=== PATIENT | female | born 1965 | race Caucasian/White ===

== ENCOUNTER 2018-04-09 14:16 | Emergency (ER) | payer BC ==
[2018-04-09] MEDS ORDERED: Ondansetron 4 MG/2 ML SDV IVPUSH ONE (15:39)
[2018-04-09] MEDS: Sodium Chloride 0.9% 10 ML Syringe FLUSH PRN ×2 (15:50→17:20)
--- NOTE | 2018-04-09 15:52 | EDM.PDOC ---
ED HPI GENERAL MEDICAL PROBLEM - General Chief Complaint: Abdominal Pain Stated Complaint: VOMITING Time Seen by Provider: 04/09/18 14:41 Source of Information: Reports: Patient History Limitations: Reports: No Limitations - History of Present Illness INITIAL COMMENTS - FREE TEXT/NARRATIVE: 52 year old female presents for evaluation and treatment of a headache. Patient reports she has had a headache daily since , about 3 months ago. She reports sinus pressure. State the headaches have been intermittent. This headache started last night. Located mostly in the frontal area but her entire head is involved. Reports associated symptoms of nausea and dry heaves but no vomiting. She does not believe she has had any fevers. No recent trauma. Patient reports she is menopauseal and feels diaphoretic. She is unsure if she has had fevers but is feeling hot and cold. Patient;s blood pressure is elevated upon triage. States she does not normally have elevated b/p. She denies any chest pain or shortness of breath. Reports she drinks alcohol socially. No drug usage. Smokes a 1/2 pack per day. Headache Pain Score (Numeric/FACES): 10 Upper Abdominal Pain Score (Numeric/FACES): 10 - Related Data Allergies Allergy/AdvReac Type Severity Reaction Status Date / Time No Known Allergies Allergy Verified 04/09/18 14:25 Home Meds: Home Meds [place]-3 Fatty Acids [Fish Oil] 500 mg PO DAILY 05/01/16 [History] Amoxicillin/Potassium Clav [Augmentin 875-125 Tablet] 1 each PO BID #20 tablet 04/09/18 [Rx] Cetirizine [ZyrTEC] 10 mg PO DAILY 04/09/18 [History] guaiFENesin [Mucinex] 600 mg PO DAILY 04/09/18 [History] Past Medical History HEENT History: Reports: Impaired Vision, Sinusitis Other HEENT History: uses reading glasses Gastrointestinal History: Reports: GERD, [employer] History: Reports: Musculoskeletal History: Reports: Fracture Neurological History: Reports: Headaches, Chronic Psychiatric History: Reports: Depression - Infectious Disease History Infectious Disease History: Reports: Chicken Pox, Measles, Mumps - Past Surgical History Female Surgical History: Reports: Section, Hysterectomy Social & Family History - Tobacco Use Smoking Status *Q: Current Every Day Smoker Years of Tobacco use: 14 Packs/Tins Daily: 0.5 Second Hand Smoke Exposure: Yes - Caffeine Use Caffeine Use: Reports: Coffee - Recreational Drug Use Recreational Drug Use: No ED ROS GENERAL - Review of Systems Review Of Systems: See Below Constitutional: Reports: Fever, Chills, Malaise, Diaphoresis HEENT: Reports: Sinus Problem. Denies: Ear Pain, Throat Pain Respiratory: Reports: Cough. Denies: Shortness of Breath Cardiovascular: Reports: Chest Pain GI/Abdominal: Reports: Nausea. Denies: Vomiting (reports dry heaves ) - Physical Exam Exam: See Below Exam Limited By: No Limitations General Appearance: Alert, WD/WN, Anxious, Mild Distress, Obese Eye Exam: Bilateral Eye: Normal Inspection (pupils equal and pinpoint 2-3 mm; reactive to light) Ears: Normal External Exam Nose: Normal Inspection Throat/Mouth: Normal Inspection, Normal Lips, Normal Oropharynx, No Airway Compromise, Other (horse voice) Head Exam: Atraumatic, Normocephalic, Sinus Tenderness (bilateral frontal and maxillary) Respiratory/Chest: No Respiratory Distress, Lungs Clear, Normal Breath Sounds Cardiovascular: Normal Peripheral Pulses, Regular Rate, Rhythm, No Murmur GI/Abdominal: Soft, Non-Tender Neuro Exam (Abbreviated): Alert, Oriented, Inattentive Psychiatric: Anxious Skin Exam: Warm, Dry EKG INTERPRETATION EKG Date: 04/09/18 Time: 16:55 Rhythm: NSR Rate (Beats/Min): 66 [place]: Normal P-Wave: Present QRS: Normal ST-T: Normal QT: Normal EKG Interpretation Comments: NSR at 66 bpm. nonspecific wave flattening V2-V4. No STEMI. Reviewed by myself and Dr. Eden Soares. Course - Vital Signs Last Recorded V/S: Last Vital Signs Temp 96.2 F 04/09/18 14:25 Pulse 84 04/09/18 17:50 Resp 18 04/09/18 17:50 BP 142/114 H 04/09/18 17:50 Pulse Ox 99 04/09/18 17:50 - Orders/Labs/Meds Labs: Laboratory Tests 04/09/18 04/09/18 04/09/18 Range/Units 15:52 15:52 16:00 WBC 7.61 (3.98-10.04) K/mm3 RBC 5.83 H (3.98-5.22) M/mm3 Hgb 18.2 H (11.2-15.7) gm/L Hct 51.9 H (34.1-44.9) % MCV 89.0 (79.4-94.8) fl MCH 31.2 (25.6-32.2) pg MCHC 35.1 (32.2-35.5) g/dl RDW Std Deviation 46.1 (36.4-46.3) fL Plt Count 138 L (182-369) K/mm3 MPV 11.2 (9.4-12.3) fl Neutrophils % (Manual) 81 H (40-60) % Band Neutrophils % 0 (0-10) % Lymphocytes % (Manual) 16 L (20-40) % Atypical Lymphs % 0 % Monocytes % (Manual) 1 L (2-10) % Eosinophils % (Manual) 2 (0.7-5.8) % Basophils % (Manual) 0 L (0.1-1.2) Platelet Estimate Adequate RBC Morph Comment Normal Sodium 146 H (136-145) mEq/L Potassium 4.0 (3.5-5.1) mEq/L Chloride 110 H (98-107) mEq/L Carbon Dioxide 24 (21-32) mEq/L Anion Gap 16.0 H (5-15) BUN 10 (7-18) mg/dL Creatinine 0.9 (0.55-1.02) mg/dL Est Cr Clr Drug Dosing 59.80 mL/min Estimated GFR (MDRD) > 60 (>60) mL/min BUN/Creatinine Ratio 11.1 L (14-18) Glucose 115 H (74-106) mg/dL Calcium 9.7 (8.5-10.1) mg/dL Total Bilirubin 0.8 (0.2-1.0) mg/dL AST 20 (15-37) U/L ALT 29 (14-59) U/L Alkaline Phosphatase 68 (46-116) U/L C-Reactive Protein 1.3 H* (<1.0) mg/dL Total Protein 7.2 (6.4-8.2) g/dl Albumin 3.8 (3.4-5.0) g/dl Globulin 3.4 gm/dL Albumin/Globulin Ratio 1.1 (1-2) Urine Color Dark yellow (Yellow) Urine Appearance Clear (Clear) Urine pH 8.5 H (5.0-8.0) Ur Specific [place] 1.025 (1.005-1.030) Urine Protein 2+ H (Negative) Urine Glucose (UA) Negative (Negative) Urine Ketones Trace H (Negative) Urine Occult Blood Negative (Negative) Urine Nitrite Negative (Negative) Urine Bilirubin 1+ H (Negative) Urine Urobilinogen 0.2 (0.2-1.0) Ur Leukocyte Esterase Negative (Negative) Urine RBC 0-5 (0-5) /hpf Urine WBC 0-5 (0-5) /hpf Ur Epithelial Cells 5-10 H (0-5) /hpf Urine Bacteria Moderate H (FEW) /hpf Urine Mucus Many H (FEW) /hpf Urine Opiates Screen (NEGATIVE) Ur Buprenorphine Scrn (NEGATIVE) Ur Oxycodone Screen (NEGATIVE) Urine Methadone Screen (NEGATIVE) Ur Propoxyphene Screen (NEGATIVE) Ur Barbiturates Screen (NEGATIVE) Ur Tricyclics Screen (NEGATIVE) Ur Phencyclidine Scrn (NEGATIVE) Ur Amphetamine Screen (NEGATIVE) U Methamphetamines Scrn (NEGATIVE) U Benzodiazepines Scrn (NEGATIVE) U Cocaine Metab Screen (NEGATIVE) U Marijuana (THC) Screen (NEGATIVE) Ethyl Alcohol 0.00 (0.00) gm% 04/09/18 Range/Units 16:00 WBC (3.98-10.04) K/mm3 RBC (3.98-5.22) M/mm3 Hgb (11.2-15.7) gm/L Hct (34.1-44.9) % MCV (79.4-94.8) fl MCH (25.6-32.2) pg MCHC (32.2-35.5) g/dl RDW Std Deviation (36.4-46.3) fL Plt Count (182-369) K/mm3 MPV (9.4-12.3) fl Neutrophils % (Manual) (40-60) % Band Neutrophils % (0-10) % Lymphocytes % (Manual) (20-40) % Atypical Lymphs % % Monocytes % (Manual) (2-10) % Eosinophils % (Manual) (0.7-5.8) % Basophils % (Manual) (0.1-1.2) Platelet Estimate RBC Morph Comment Sodium (136-145) mEq/L Potassium (3.5-5.1) mEq/L Chloride (98-107) mEq/L Carbon Dioxide (21-32) mEq/L Anion Gap (5-15) BUN (7-18) mg/dL Creatinine (0.55-1.02) mg/dL Est Cr Clr Drug Dosing mL/min Estimated GFR (MDRD) (>60) mL/min BUN/Creatinine Ratio (14-18) Glucose (74-106) mg/dL Calcium (8.5-10.1) mg/dL Total Bilirubin (0.2-1.0) mg/dL AST (15-37) U/L ALT (14-59) U/L Alkaline Phosphatase (46-116) U/L C-Reactive Protein (<1.0) mg/dL Total Protein (6.4-8.2) g/dl Albumin (3.4-5.0) g/dl Globulin gm/dL Albumin/Globulin Ratio (1-2) Urine Color (Yellow) Urine Appearance (Clear) Urine pH (5.0-8.0) Ur Specific [place] (1.005-1.030) Urine Protein (Negative) Urine Glucose (UA) (Negative) Urine Ketones (Negative) Urine Occult Blood (Negative) Urine Nitrite (Negative) Urine Bilirubin (Negative) Urine Urobilinogen (0.2-1.0) Ur Leukocyte Esterase (Negative) Urine RBC (0-5) /hpf Urine WBC (0-5) /hpf Ur Epithelial Cells (0-5) /hpf Urine Bacteria (FEW) /hpf Urine Mucus (FEW) /hpf Urine Opiates Screen Negative (NEGATIVE) Ur Buprenorphine Scrn Negative (NEGATIVE) Ur Oxycodone Screen Negative (NEGATIVE) Urine Methadone Screen Negative (NEGATIVE) Ur Propoxyphene Screen Negative (NEGATIVE) Ur Barbiturates Screen Negative (NEGATIVE) Ur Tricyclics Screen Negative (NEGATIVE) Ur Phencyclidine Scrn Negative (NEGATIVE) Ur Amphetamine Screen Negative (NEGATIVE) U Methamphetamines Scrn Negative (NEGATIVE) U Benzodiazepines Scrn Negative (NEGATIVE) U Cocaine Metab Screen Negative (NEGATIVE) U Marijuana (THC) Screen Presumptive positive H (NEGATIVE) Ethyl Alcohol (0.00) gm% Meds: Medications Discontinued Medications Generic Name Dose Route Start Last Admin Trade Name Freq PRN Reason Stop Dose Admin Ketorolac Tromethamine 30 mg 04/09/18 16:39 04/09/18 17:18 Toradol IVPUSH 04/09/18 16:40 30 mg ONETIME ONE Administration Ondansetron HCl 4 mg 04/09/18 15:39 04/09/18 15:51 Zofran IVPUSH 04/09/18 15:40 4 mg ONETIME ONE Administration Sodium Chloride 10 ml 04/09/18 15:16 04/09/18 17:20 Saline Flush FLUSH 10 ml ASDIRECTED PRN Administration Keep Vein Open - Radiology Interpretation Free Text/Narrative:: Chest: Portable view of the chest was obtained. Comparison: No prior chest x-ray, previous chest CT of 05/01/16. Heart size slightly prominent but felt accentuated from portable technique. Tortuous thoracic aorta is seen. Lungs are clear. Bony structures are grossly intact. Impression: 1. Nothing acute is seen on portable chest x-ray. Head CT Technique: Multiple axial sections through the brain were obtained. Intravenous contrast was not utilized. Comparison: No prior intracranial imaging. Findings: Ventricles along with basal cisterns and sulci over convexities are within normal limits for the patient's age. No abnormal parenchymal densities are seen. No evidence of intracranial hemorrhage. No midline shift or mass effect is seen. Slight basal ganglia calcification is incidentally noted. Bone window settings were reviewed which shows no acute calvarial abnormality. Impression: 1. Sinus findings which will be discussed on sinus CT exam. 2. Other incidental findings. Nothing acute is appreciated on noncontrast head CT exam. CT paranasal sinuses Technique: Multiple axial sections through the paranasal sinuses were obtained. Reconstructed sagittal and coronal images were reviewed. Findings: Retention cyst is seen within the left maxillary sinus measuring approximately 2.7 cm. Mild mucosal thickening is seen within left maxillary sinus. Mild mucosal thickening is seen within the right maxillary sinus as well as minimal mucosal thickening within the sphenoid sinus and within portions of the ethmoid sinus. No air-fluid levels are seen. Minimal nasal septal deviation is seen. Impression: 1. Mild findings of chronic sinusitis as described above. - Re-Assessments/Exams Free Text/Narrative Re-Assessment/Exam: 04/09/18 16:36 I reviewed the labs, ekg and imaging with the patient. minor improvements in b/ p without intervention. Will give toradol for HARRIS and if b/p continues to be elevated will plan to give antihypertensive. Patient is resting comfortably at this time. 04/09/18 17:39 Patient is feeling improved. She is anxious to go home at this time. B/ps have consistently been in the 150s-160 systolic without intervention. Suspect it was her sinus pressure/headache that caused her b/p to elevate. Discharge instructions as documented. Departure - Departure Time of Disposition: 17:39 Disposition: Home, Self-Care 01 Condition: Fair Clinical Impression: Sinusitis - Discharge Information Prescriptions: Amoxicillin/Potassium Clav [Augmentin 875-125 Tablet] 1 each PO BID #20 tablet Instructions: Sinusitis, Adult, [id number] Referrals: Colleen Guzman NP [Primary Care Provider] - Forms: ED Department Discharge Additional Instructions: take the augment 1 tab PO bid x 10 days. Take this medication with food to help reduce side effects of upset stomach, nausea and diarrhea. Also recommended, probiotic or yogurt to help reduce this. [id number] Tylenol or Motrin as needed for headaches and additional symptom relief. Follow-up with your primary care provide 2 weeks for recheck of your symptoms. Rest. Make sure you drink plenty of fluids. Please return the ER if your symptoms change or worsen.
--- NOTE | 2018-04-09 16:05 | CT ---
Head CT Technique: Multiple axial sections through the brain were obtained. Intravenous contrast was not utilized. Comparison: No prior intracranial imaging. Findings: Ventricles along with basal cisterns and sulci over convexities are within normal limits for the patient's age. No abnormal parenchymal densities are seen. No evidence of intracranial hemorrhage. No midline shift or mass effect is seen. Slight basal ganglia calcification is incidentally noted. Bone window settings were reviewed which shows no acute calvarial abnormality. Impression: 1. Sinus findings which will be discussed on sinus CT exam. 2. Other incidental findings. Nothing acute is appreciated on noncontrast head CT exam. Diagnostic code #2
--- NOTE | 2018-04-09 16:06 | CT ---
CT paranasal sinuses Technique: Multiple axial sections through the paranasal sinuses were obtained. Reconstructed sagittal and coronal images were reviewed. Findings: Retention cyst is seen within the left maxillary sinus measuring approximately 2.7 cm. Mild mucosal thickening is seen within left maxillary sinus. Mild mucosal thickening is seen within the right maxillary sinus as well as minimal mucosal thickening within the sphenoid sinus and within portions of the ethmoid sinus. No air-fluid levels are seen. Minimal nasal septal deviation is seen. Impression: 1. Mild findings of chronic sinusitis as described above. Diagnostic code #3
[2018-04-09] MEDS ORDERED: Ketorolac 30 MG/ML SDV IVPUSH ONE (16:39)
[2018-04-09 18:16] VITALS: BP 142/114
--- NOTE | 2018-04-10 07:44 | CR ---
Chest: Portable view of the chest was obtained. Comparison: No prior chest x-ray, previous chest CT of 05/01/16. Heart size slightly prominent but felt accentuated from portable technique. Tortuous thoracic aorta is seen. Lungs are clear. Bony structures are grossly intact. Impression: 1. Nothing acute is seen on portable chest x-ray. Diagnostic code #1
== END 2018-04-09 17:50 | disposition home or self-care (01) ==
LOC: SUPCPDRO 14:16 → JD.ED 14:16
DX: J32.9 Chronic sinusitis, unspecified (principal); F17.210 Nicotine dependence, cigarettes, uncomplicated; Z79.899 Other long term (current) drug therapy
CPT/HCPCS: 36415; 70450; 70486; 71045; 80053; 80306; 81001; 85007; 85027; 86140; 93005; 96374; 96375; 99285; G0480; J1885; J2405; J7050

== ENCOUNTER 2022-01-08 06:45 | Emergency (ER) | payer BC, OTHER ==
[2022-01-08 07:03] VITALS: BP 119/106; PULSE 92
[2022-01-08] MEDS ORDERED: Lidocaine 1% with EPINEPHrine 1:100,000 10 ML MDV INJECT ONE (07:13)
[2022-01-08] MEDS ORDERED: Bupivacaine 0.5% 10 ML SDV INJECT ONE (07:13)
[2022-01-08] MEDS ORDERED: Diphtheria,Pertussis(Acell),Tetanus Vaccine 0.5 ML Syringe IM ONE (07:13)
== END 2022-01-08 08:00 | disposition home or self-care (01) ==
LOC: JD.ED 06:45
DX: S81.012A Laceration without foreign body, left knee, initial encounter (principal); Z72.0 Tobacco use; Z23 Encounter for immunization; W01.0XXA Fall on same level from slipping, tripping and stumbling without subsequent striking against object, initial encounter
CPT/HCPCS: 12002; 90471; 90715; 99283; J3490